=== PATIENT | female | born 1970 | race Caucasian/White ===

== ENCOUNTER 2023-10-29 07:32 | Emergency (ER) | payer BC, OTHER ==
[~2023-10-29] VITALS: Ht 154.9 cm; Wt 86.7 kg
[2023-10-29 08:09] VITALS: BP 138/97; PULSE 96; RESP 18; TEMP 98.3; O2SAT 96
[2023-10-29] MEDS ORDERED: MOXI0.5D9 OP (08:26)
[2023-10-29] MEDS ORDERED: AUG875T PO (08:26)
== END 2023-10-29 08:33 | disposition home or self-care (01) ==
LOC: ER 07:32
DX: J01.90 Acute sinusitis, unspecified (principal); H10.33 Unspecified acute conjunctivitis, bilateral